=== PATIENT | female | born 1980 | race Caucasian/White ===

== ENCOUNTER 2018-04-29 00:07 | Emergency (ER) | payer BC ==
--- NOTE | 2018-04-29 00:53 | ER Document Report ---
ED General - General Chief Complaint: Palpitations Stated Complaint: BLOOD PRESSURE ISSUES Time Seen by Provider: 04/29/18 00:52 Notes: Patient is a 37-year-old female presents with complaint of rapid heartbeat. She said she is here visiting from [place]. She denies any significant stressors at this time but says she cannot completely rule out stress possibility. Her mother is at bedside as her mother says that she herself actually has a history of recurrent rapid heartbeat throughout her entire life and that this seems to run in the family. Patient denies any chest pain. No shortness of breath. No dizziness. No syncope. He did just recently drove up here from [place]. She denies a history of thyroid issues. She has no chronic medical problems. No drug use. TRAVEL OUTSIDE OF THE [place] IN LAST 30 DAYS: No - Related Data Allergies/Adverse Reactions: No Known Allergies Allergy (Unverified 04/29/18 01:32) Past Medical History - Social History Smoking Status: Never Smoker Frequency of alcohol use: None Drug Abuse: None Family History: Reviewed & Not Pertinent Review of Systems - Review of Systems Notes: My Normal Review Basic REVIEW OF SYSTEMS: CONSTITUTIONAL : Denies fever, chills, or sweats. Denies recent illness. EENT: Denies eye, ear, throat, or mouth pain or symptoms. Denies nasal or sinus congestion. CARDIOVASCULAR: Denies chest pain. Has palpitations. RESPIRATORY: Denies cough, cold, or chest congestion. Denies shortness of breath, difficulty breathing, or wheezing. GASTROINTESTINAL: Denies abdominal pain. Denies nausea, vomiting, or diarrhea. SKIN: Denies rash or skin lesions. NEUROLOGICAL: Denies altered mental status or loss of consciousness. Denies headache. Denies weakness or paralysis or loss of use of either side. Denies problems with gait or speech. Denies sensory or motor loss. ALL OTHER SYSTEMS REVIEWED AND NEGATIVE. Physical Exam - Vital signs Vitals: Temp Pulse Resp BP Pulse Ox 98.9 F 115 H 20 133/88 H 115 H 04/29/18 00:28 04/29/18 00:28 04/29/18 00:28 04/29/18 00:28 04/29/18 00:28 - Notes Notes: General Appearance: Well nourished, alert, cooperative, no acute distress, no obvious discomfort. Well appearing Vitals: reviewed, See vital signs table. Head: no swelling or tenderness to the head Eyes: PERRL, EOMI, Conjuctiva clear Mouth: No decreasd moisture Lungs: No wheezing, No rales, No rhonci, No accessory muscle use, good air exchange bilaterally. Heart: Rapid rate, Regular rythm, No murmur, no rub Abdomen: Normal BS, soft, No rigidity, No abdominal tenderness, No guarding, no rebound, no abdominal masses, no organomegaly Extremities: strength 5/5 in all extremities, good pulses in all extremities, no swelling or tenderness in the extremities, no edema. Skin: warm, dry, appropriate color, no rash Neuro: speech clear, oriented x 3, normal affect, responds appropriately to questions. Course - Re-evaluation Re-evalutation: 04/29/18 03:26 Because of the patient's long road trip and new onset of tachycardia did obtain a CT of the chest rule out PE. This was negative. Patient's thyroid function is normal. Her electrolytes and heart enzymes are negative. She is not significantly anemic. She looks very well. I left her on a hospital monitor. 1 mL the room her heart rate goes down to the 80s and 90s. When into the room heart rate jumps back up to just over 100. I think there is some stress component to this. I did talk to patient about this. Follow-up closely with her primary care doctor when she gets back to [place]. She supposed to drive back tomorrow with her mom. Mom herself has a history of recurrent intermittent tachycardia that is benign. This could be genetic as well. I strongly encouraged her to follow-up with closest ER if she starts having chest pain, difficulty breathing, any syncope, or prolonged episodes of rapid heartbeat. Patient agrees with plan and will be discharged home. Dictation of this chart was performed using voice recognition software; therefore, there may be some unintended grammatical errors. - Vital Signs Vital signs: Temp Pulse Resp BP Pulse Ox 98.9 F 104 H 14 110/63 98 04/29/18 00:28 04/29/18 01:20 04/29/18 03:01 04/29/18 03:01 04/29/18 03:01 - Laboratory Result Diagrams: 04/29/18 01:20 04/29/18 01:20 Laboratory results interpreted by me: 04/29/18 01:20 WBC 11.0 H - EKG Interpretation by Me Additional EKG results interpreted by me: 04/29/18 00:53 EKG is reviewed and interpreted by me. EKG shows sinus tachycardia with rate of [address] segment elevation or depression. No ischemic T-wave inversions. [place] interval, QRS duration, QTc intervals are within normal range. No old EKG available for comparison. Discharge - Discharge Clinical Impression: Tachycardia Condition: Good Disposition: HOME, SELF-CARE Additional Instructions: Please follow up with your doctor in the next 3-5 days. Please return to the ER immediately if you develop chest pain, difficulty breathing, have passing out episodes, or feel that you are worsening in any way.
[2018-04-29] MEDS ORDERED: NORMAL SALINE 1000 ML 1,000 ML IV ONE (01:01)
[2018-04-29 01:37] LABS: ABSOLUTE EOSINOPHILS # (AUTO) 0.2 10^3/uL (0.0-0.6); ABSOLUTE MONOCYTES (AUTO) 0.6 10^3/uL (0.1-1.4); ABSOLUTE NEUT (AUTO) 8.1 10^3/uL (1.7-8.2); BASOPHILS % (AUTO) 0.2 % (0-2); EOSINOPHILS % (AUTO) 2.1 % (0-6); HEMATOCRIT 38.5 % (36.0-47.0); HEMOGLOBIN 13.1 g/dL (12.0-15.5); LYMPHOCYTES % (AUTO) 17.9 % (13-45); MEAN CORPUSCULAR HEMOGLOBIN 28.4 pg (27.0-33.4); MEAN CORPUSCULAR VOLUME 84 fl (80-97); MONOCYTES % (AUTO) 5.8 % (3-13); PLATELET COUNT 189 10^3/uL (150-450); RED BLOOD COUNT 4.61 10^6/uL (3.72-5.28); RED CELL DISTRIBUTION WIDTH 13.7 % (11.5-14.0); TOTAL CELLS COUNTED % (AUTO) 100 %
[2018-04-29 01:48] LABS: ANION GAP 11 (5-19); BLOOD UREA NITROGEN 15 mg/dL (7-20); CALCIUM 9.5 mg/dL (8.4-10.2); CARBON DIOXIDE 25 mmol/L (22-30); CHLORIDE 107 mmol/L (98-107); GLUCOSE 105 mg/dL (75-110); POTASSIUM 3.7 mmol/L (3.6-5.0); SODIUM 142.9 mmol/L (137-145)
[2018-04-29 02:05] LABS: FREE T4 (FREE THYROXINE) 0.89 ng/dL (0.78-2.19)
[2018-04-29 02:19] LABS: THYROID STIMULATING HORMONE 2.84 uIU/mL (0.47-4.68)
--- NOTE | 2018-04-29 02:55 | RADIOLOGY REPORT (SQ) ---
EXAM DESCRIPTION: CT CHEST ANGIOGRAPHY WITH IV CONTRAST COMPLETED DATE/TME: 04/29/2018 01:00 CLINICAL HISTORY: rapid heart beat COMPARISON: None Available. TECHNIQUE: CTA of the chest obtained following the uncomplicated intravenous administration of 100 mL Isovue-370. 3-D/MIP reformatted images of the chest available for evaluation. DLP: 475.47 mGycm FINDINGS: Chest: Pulmonary arteries: Contrast bolus is adequate.No filling defects identified in the pulmonary arteries to suggest pulmonary embolus. Thyroid:No abnormalities of the visualized thyroid. Great Vessels:Great vessels have normal anatomic configuration. Thoracic Aorta:No abnormalities of the thoracic aorta identified. Heart:No cardiomegaly, significant pericardial effusion, or coronary artery atherosclerosis Lymph Nodes:No enlarged mediastinal lymph nodes identified. Calcified right paratracheal lymph nodes. Esophagus:No abnormalities of the esophagus identified. Other:No additional findings. Lungs:No alveolar or interstitial airspace opacities identified. Pleura:No pleural effusion or pneumothorax. Trachea/Airways:No abnormalities of the visualized trachea or airways. Bones:No destructive osseous lesions. Upper Abdomen:Limited images of the upper abdomen demonstrate no definite abnormalities of visualized portions of the liver, gallbladder, pancreas, spleen, adrenal glands, or kidneys. IMPRESSION: 1. No pulmonary embolus identified. This exam was performed according to our departmental dose-optimization program, which includes automated exposure control, adjustment of the mA and/or kV according to patient size and/or use of iterative reconstruction technique.
[2018-04-29 03:36] VITALS: BP 112/83
--- NOTE | 2018-04-29 07:31 | EKG REPORT ---
SEVERITY:- BORDERLINE ECG - SINUS TACHYCARDIA BORDERLINE T ABNORMALITIES, ANT-LAT LEADS : Confirmed by: Beto Burnett MD 29-Apr-2018 07:30:17
== END 2018-04-29 03:36 | disposition home or self-care (01) ==
LOC: ER 00:07
DX: R00.0 Tachycardia, unspecified (principal); R00.2 Palpitations
CPT/HCPCS: 93005; 99285; 96360; 36415; 84439; 83735; 84443; 84703; 85025; 80048; 84484; 71275; 93010; J7030